=== PATIENT | female | born 1965 | race Caucasian/White ===

== ENCOUNTER → 2020-07-20 | Outpatient (CLI) | payer BC | END | disposition home or self-care (01) | LOC: RADMRIMAIN 14:05 | PROVIDERS: ATTEND Family Medicine | DX: Z53.9 Procedure and treatment not carried out, unspecified reason (principal) ==

== ENCOUNTER → 2020-09-18 | Outpatient (CLI) | payer BC ==
[2020-09-18 16:24] LABS: Basophils % (A) 1 %; Eosinophils # (A) 0.1 k/uL (0-0.7); Eosinophils % (A) 2 %; HCT 39.4 % (34.0-46.0); HGB 13.1 gm/dL (11.4-16.0); Lymphocytes # (A) 2.6 k/uL (1.0-4.8); Lymphocytes % (A) 36 %; MCH 31.1 pg (25.0-35.0); MCHC 33.2 g/dL (31.0-37.0); MCV 93.5 fL (80.0-100.0); Mean Platelet Volume 7.6; Monocytes # (A) 0.4 k/uL (0-1.0); Monocytes % (A) 5 %; Neutrophils # (A) 3.9 k/uL (1.3-7.7); Neutrophils % (A) 54 %; Platelet Count 218 k/uL (150-450); RBC 4.21 m/uL (3.80-5.40); RDW 13.1 % (11.5-15.5); WBC 7.2 k/uL (3.8-10.6)
[2020-09-18 16:46] LABS: Potassium 4.7 mmol/L (3.5-5.1)
== END | disposition home or self-care (01) ==
LOC: LABPAT 15:30
PROVIDERS: ATTEND Orthopaedic Surgery
DX: M75.42 Impingement syndrome of left shoulder (principal)
CPT/HCPCS: 36415; 80051; 85025; 93005

== ENCOUNTER 2020-09-23 09:52 | Day surgery (SDC) | payer BC ==
[2020-09-20 11:22] VITALS: BMI 29.6
--- NOTE | 2020-09-22 16:10 | HP ---
HISTORY AND PHYSICAL DATE OF SURGERY: 09/23/2020 Tammie Hummel is a 55-year-old patient seen with progressive left shoulder pain. We discussed options for treatment. She elected to proceed with arthroscopy. Consent regarding procedure was obtained. PAST MEDICAL HISTORY: Zev-ftpfgyy-sqxxmaktz diabetes, hyperlipidemia, hypertension, hypothyroidism. PAST SURGICAL HISTORY: section, cholecystectomy, mastectomy. DAILY MEDICATIONS ARE: Doxycycline, levothyroxine. ALLERGIES: CEFAZOLIN, SURGICAL TAPE, EVISTA. SOCIAL HISTORY: She denies tobacco use. PHYSICAL EVALUATION: The left shoulder shows flexion is 150, abduction is 140, external rotation is 30 with pain and weakness. She is tender along the anterior acromion. The anterolateral rotator cuff insertion site impingement is positive at 80/90 degrees. Drop-arm sign is positive. Her distal neurovascular exam is intact. RADIOGRAPHS: Radiographs of the left shoulder revealed a type 2 anterior acromion, moderate osteoarthritic change of the acromioclavicular joint and cystic changes of the greater tuberosity. IMPRESSION: 1. Left shoulder impingement with rotator cuff tear. 2. Left shoulder acromioclavicular joint osteoarthritis. 3. Hyperlipidemia. 4. Hypothyroidism. 5. Ayy-evlnwbv-vsfwgtryb diabetes. PLAN: Left shoulder arthroscopy with subacromial decompression, arthroscopic rotator cuff repair, Ca procedure and debridement. MMODL / IJN: [id number] /
[~2020-09-23 09:52] MED LIST: CLINDAMYCIN 600 MG in DEXTROSE 5% IN WATER 50 ML IVPB ONE; DEXAMETHASONE SOD PHOSPHATE 4 MG/ML 1 ML VIAL IV ONE; LACTATED RINGERS 1,000 ML IV SCH; LIDOCAINE 1% (10MG/ML) FOR IV START INTRADERMA PRN; MIDAZOLAM 2 MG/2 ML VIAL IV PRN; ONDANSETRON 4 MG/2 ML VIAL IVP ONE
[2020-09-23 10:37] LABS: Glucose,Whole Blood 136 mg/dL (75-99)
[2020-09-23] MEDS ORDERED: MIDAZOLAM 2 MG/2 ML VIAL IVP ONE (10:47)
[2020-09-23] MEDS ORDERED: SUCCINYLCHOLINE CHLORIDE 100 MG/5 ML SYR IV ONE (11:57)
[2020-09-23] MEDS ORDERED: ROPIVACAINE 5 MG/ML 30 ML VIAL ONE (11:57)
[2020-09-23] MEDS ORDERED: MIDAZOLAM 2 MG/2 ML VIAL ONE (11:57)
[2020-09-23] MEDS ORDERED: PHENYLEPHRINE-0.9% NACL SYG 1 MG/10 ML SYRINGE ONE (11:57)
[2020-09-23] MEDS ORDERED: LIDOCAINE 1% INJ 10MG/ML (20 ML MDV) ONE (11:57)
[2020-09-23] MEDS ORDERED: fentaNYL (PF) 50 MCG/ML 2 ML AMP ONE (11:57)
[2020-09-23] MEDS ORDERED: PROPOFOL 10 MG/ML 20 ML VIAL IV ONE (11:57)
--- NOTE | 2020-09-23 13:09 | P.ANPRN ---
Procedure Note - Anesthesia - Nerve Block Performed Left Interscalene Single Date of Procedure: 09/23/20 Procedure Start Time: 10:46 Procedure Stop Time: 11:02 Indication: Acute Post-Operative Pain, Requested by Surgeon Specifically requested for management of pain by DrRenetta: Tarun Murguia Sedation Type: Sedate with meaningful contact maintained Preparation: Sterile Prep Position: Supine Catheter: None Needle Types: On-Q Needle Gauge: 20 Ultrasound used to visualize needle placement: Yes Ultrasound used to observe medication spread: Yes Injectate: Other (see comment) (25 cc of Ropivacaine 0.5%) Blood Aspirated: No Pain Paresthesia on Injection Noted: No Resistance on Injection: Normal Image Stored and Saved: Yes Events: Uneventful and Well Tolerated
--- NOTE | 2020-09-23 13:36 | P.OP ---
Date of Procedure: 09/23/20 Preoperative Diagnosis: Left shoulder impingement Postoperative Diagnosis: 1. Left shoulder rotator cuff tear 2. Left shoulder impingement 3. Left shoulder partial long head biceps tendon tear 4. Left shoulder superficial labral tear Procedure(s) Performed: 1. Left shoulder arthroscopic rotator cuff repair 2. Left shoulder arthroscopic subacromial decompression 3. Left shoulder arthroscopic biceps tenotomy 4. Left shoulder arthroscopic debridement labral tear Implants: 14.75 Arthrex swivel lock anchor Anesthesia: GETA, regional (Interscalene block) Surgeon: Tarun Murguia Entry Level Accountant #1: Tadeo Torres Estimated Blood Loss (ml): 7 Pathology: none sent Condition: stable Disposition: PACU Indications for Procedure: 55-year-old patient seen with progressive left shoulder pain. After treatment options were discussed with her, she elected to proceed with arthroscopy. Operative Findings: See description of procedure Description of Procedure: Patient underwent an interscalene block by department of anesthesia. The patient was then taken to the operative suite. The patient underwent a general anesthetic by the department of anesthesia. The patient was placed into a lateral position and secured. There was appropriate padding of the bony prominence. Left shoulder was then prepped and draped in normal sterile orthopedic fashion. We placed the extremity in 10 pounds of longitudinal traction. A posterior incision was now made for a posterior working portal site. The trocar and cannula were inserted into the glenohumeral joint. Arthroscopy w as initiated. Spinal needle was now inserted anteriorly, to ascertain the anterior working portal site. An incision was now made in that area, a trocar was inserted followed by a probe. There was some hyperemia and partial tearing long head biceps tendon. There was some superficial tearing of the anterior labrum. There were grade 1 chondromalacia changes of the humeral head. I performed an arthroscopic biceps tenotomy. I debrided the superficial labral tears getting down to stable labral tissue. The residual labrum was probed and found to be stable. Instruments were now removed from glenohumeral joint. Utilizing the posterior working portal site, the trocar and cannula were inserted into the subacromial space. Arthroscopy initiated. I made an incision 2 fingerbreadths lateral to the acromion. I introduced my trocar followed by my ArthroCare ablator. I now began ablating thick subacromial bursal tissue, which exposed the undersurface of the anterior acromion. There was diminished subacromial space. There was a very prominent anterior acromion. A motorized bur was introduced and a subacromial decompression was performed. I also excised some osteophytes off the inferior aspect of the distal clavicle. The AC joint was visualized and noted to be moderately arthritic. I did not think a Ca procedure was warranted. I turned my attention to the rotator cuff tendon. I found area superficial tearing along the mid body distal supraspinatus. Upon probing that area there was an obvious full-thickness perforation/tear. I debrided the margins getting down to stable tendon tissue. The defect measured approximately 1.5 cm but was freely mobile over the footprint. I abraded the footprint with a motorized bur. I now with assistance of Thomas BARDALES past 3 everted mattress sutures through good bites of rotator cuff tendon. I now punched hole in the footprint area for insertion of an anchor. I now passed all 6 limbs of suture through the eyelet of a 4.75 Arthrex swivel lock anchor. I now introduced the eyelet into the pre-punched hole. I held it in position while Thomas BARDALES tensioned all 6 limbs of suture and deployed the anchor with good fixation noted. All residual suture limbs were now clipped. We had good compression of the tendon along the entire footprint. Injected 1 mL Renyte intra-articular. Instruments now removed from the portal sites. All portal sites were approximated with nylon suture. Sterile dressings were applied followed by a shoulder sling. Tadeo BARDALES assisted in this complex case. The patient was awakened, transferred to a bed, and taken to recovery in stable condition.
[2020-09-23 13:38] VITALS: TEMP 97
[2020-09-23 13:52] LABS: Glucose,Whole Blood 126 mg/dL (75-99)
[2020-09-23 14:02] VITALS: RESP 18
[2020-09-23 14:15] VITALS: BP 108/67; PULSE 91
== END 2020-09-23 15:13 | disposition home or self-care (01) ==
LOC: OR 09:52
PROVIDERS: ATTEND Orthopaedic Surgery
DX: M75.122 Complete rotator cuff tear or rupture of left shoulder, not specified as traumatic (principal); M75.42 Impingement syndrome of left shoulder; S46.112A Strain of muscle, fascia and tendon of long head of biceps, left arm, initial encounter; S43.432A Superior glenoid labrum lesion of left shoulder, initial encounter; I10 Essential (primary) hypertension; E78.5 Hyperlipidemia, unspecified; E11.9 Type 2 diabetes mellitus without complications; E03.9 Hypothyroidism, unspecified; Z88.1 Allergy status to other antibiotic agents; Z88.5 Allergy status to narcotic agent; Z88.8 Allergy status to other drugs, medicaments and biological substances; Z79.890 Hormone replacement therapy; Z79.84 Long term (current) use of oral hypoglycemic drugs; Z79.899 Other long term (current) drug therapy; Z90.49 Acquired absence of other specified parts of digestive tract; Z90.12 Acquired absence of left breast and nipple; Z91.048 Other nonmedicinal substance allergy status; Z98.891 History of uterine scar from previous surgery
CPT/HCPCS: 64415; 76942; 29824; 29826; 29827; J2250; J1100; J2405; J2001; J3010; J2795; J2370; J0330; J2704

== ENCOUNTER 2021-02-24 11:18 | Day surgery (SDC) | payer BC ==
--- NOTE | 2021-02-23 12:22 | HP ---
HISTORY AND PHYSICAL DATE OF SERVICE: Surgery scheduled for 02/24/2021 HISTORY OF PRESENT ILLNESS: Tammie Hummel is a 56-year-old patient seen with left shoulder adhesive capsulitis. We discussed options for treatment. She elected to proceed with manipulation under anesthesia left shoulder with steroid injection. Consent regarding the procedure was obtained. PAST MEDICAL HISTORY: Hypothyroidism, wxe-iiqzgkq-jyalwpagr diabetes, hyperlipidemia. PAST SURGICAL HISTORY: Shoulder arthroscopy, section, cholecystectomy, mastectomy. MEDICATIONS: Clonidine, levothyroxine, metformin, simvastatin. ALLERGIES: CEFAZOLIN, SURGICAL TAPE, EVISTA. SOCIAL HISTORY: She denies tobacco use. PHYSICAL EXAMINATION: Evaluation of the left shoulder, flexion 130, abduction 110 degrees, external rotation 30 degrees. Portal sites are well healed. Distal neurovascular exam intact. RADIOGRAPHS: Left shoulder radiographs revealed a stable conversion to a flat anterior acromion. IMPRESSION: 1. Left shoulder adhesive capsulitis. 2. History of left shoulder arthroscopic rotator cuff repair. 3. Hypertension. 4. Hyperlipidemia. 5. Hypothyroidism. 6. Yqs-iywwtmv-xvnapxudk diabetes. PLAN: Manipulation under anesthesia left shoulder with steroid injection. Surgery is scheduled for 02/24/2021. MMODL / IJN: [id number] /
[~2021-02-24 11:18] MED LIST changes: -CLINDAMYCIN 600 MG in DEXTROSE 5% IN WATER 50 ML IVPB ONE; -DEXAMETHASONE SOD PHOSPHATE 4 MG/ML 1 ML VIAL IV ONE; -ONDANSETRON 4 MG/2 ML VIAL IVP ONE; +Pre Op ABX Message 1 EACH MISC MISCELLANE ONE
[2021-02-24 12:06] LABS: Glucose,Whole Blood 254 mg/dL (75-99)
[2021-02-24] MEDS ORDERED: ONDANSETRON 4 MG/2 ML VIAL ONE (12:08)
[2021-02-24] MEDS ORDERED: INSULIN ASPART (NovoLOG) 100 UNIT/ML VIAL SQ ONE (12:14)
[2021-02-24] MEDS ORDERED: ONDANSETRON 4 MG/2 ML VIAL IVP ONE (12:14)
[2021-02-24] MEDS ORDERED: DEXAMETHASONE SOD PHOSPHATE 4 MG/ML 1 ML VIAL IVP ONE (12:14)
[2021-02-24] MEDS ORDERED: MIDAZOLAM 2 MG/2 ML VIAL ONE (12:29)
[2021-02-24] MEDS ORDERED: PROPOFOL 10 MG/ML 20 ML VIAL IV ONE (12:29)
[2021-02-24] MEDS ORDERED: fentaNYL (PF) 50 MCG/ML 2 ML AMP ONE (12:29)
--- NOTE | 2021-02-24 12:45 | P.OP ---
Date of Procedure: 02/24/21 Preoperative Diagnosis: Left shoulder adhesive capsulitis Postoperative Diagnosis: Left shoulder adhesive capsulitis Procedure(s) Performed: Manipulation under anesthesia left shoulder with steroid injection Anesthesia: MAC, local Surgeon: Tarun Murguia Estimated Blood Loss (ml): 0 Pathology: none sent Condition: stable Disposition: PACU Indications for Procedure: 56-year-old patient seen with persistent left shoulder adhesive capsulitis. After treatment options were discussed, she elected to proceed with manipulation under anesthesia with steroid injection. Operative Findings: See description of procedure Description of Procedure: The patient was taken to a monitored anesthesia area. The patient received IV sedation by the department of anesthesia. Once sufficient anesthesia was noted I performed a manipulation of the left shoulder achieving near full range of motion with audible tearing of the adhesions. the anterior aspect was now prepped and draped in the normal sterile orthopedic fashion. I injected a mixture of 1 mL Depo-Medrol and 3 mL quarter percent Marcaine intra-articular under sterile technique. I applied a sterile Band-Aid. The patient was awakened having tolerated procedure well.
[2021-02-24 12:53] VITALS: TEMP 98
[2021-02-24] MEDS ORDERED: KETOROLAC 15 MG/ML 1 ML VIAL IVP ONE (12:53)
[2021-02-24] MEDS ORDERED: fentaNYL (PF) 50 MCG/ML 2 ML AMP IVP ONE ×2 (12:58→13:07)
[2021-02-24 13:17] LABS: Glucose,Whole Blood 217 mg/dL (75-99)
[2021-02-24 13:22] VITALS: RESP 16
[2021-02-24] MEDS ORDERED: HYDROcodone/APAP 5-325MG 1 EACH TAB ONE (13:45)
[2021-02-24] MEDS ORDERED: HYDROcodone/APAP 5-325MG 1 EACH TAB PO ONE (13:45)
[2021-02-24 14:11] VITALS: BP 116/82; PULSE 89
== END 2021-02-24 14:40 | disposition home or self-care (01) ==
LOC: OR 11:18
PROVIDERS: ATTEND Orthopaedic Surgery
DX: M75.02 Adhesive capsulitis of left shoulder (principal); E03.9 Hypothyroidism, unspecified; E11.9 Type 2 diabetes mellitus without complications; E78.5 Hyperlipidemia, unspecified; Z90.49 Acquired absence of other specified parts of digestive tract; Z98.891 History of uterine scar from previous surgery; Z90.10 Acquired absence of unspecified breast and nipple; Z98.890 Other specified postprocedural states; Z79.84 Long term (current) use of oral hypoglycemic drugs; Z79.890 Hormone replacement therapy; Z79.899 Other long term (current) drug therapy; Z88.1 Allergy status to other antibiotic agents; Z88.8 Allergy status to other drugs, medicaments and biological substances; Z91.09 Other allergy status, other than to drugs and biological substances
CPT/HCPCS: 23700; J2250; J1100; J2405; J3010; J1885; J2704

== ENCOUNTER → 2021-04-02 | Outpatient (CLI) | payer BC ==
--- NOTE | 2021-04-02 19:28 | CONS ---
CONSULTATION DATE OF SERVICE: 04/02/2021. 56-year-old lady has been evaluated in [facility] for possible obstructive sleep apnea-hypopnea syndrome. HISTORY OF PRESENT ILLNESS/SLEEP WAKE EVALUATION: SLEEP SCHEDULE: Patient's usual sleep schedule from 10 to 11:50 p.m. until 7 a.m. FALLING ASLEEP: She does have problems with falling asleep. She has TV set in bedroom. DURING SLEEP: She usually sleeps on the stomach position. She snores and wakes up from sleep 2 times with nocturia. Has episodes of snorting, choking, positive history of nightmares. She grinds her teeth, has symptoms of dry mouth, sleep talking, sweating. DURING THE DAY/SLEEP WAKE EVALUATION: In the morning patient wakes up tired, has difficulties to pay attention, falling asleep during the day, has problems with memory, concentration, and depression. [place] Sleepiness Scale significantly increased to 11. PAST MEDICAL HISTORY: Positive for hypertension, hyperlipidemia, arthritis, sinus problems, headaches, acid reflex, diabetes mellitus, depression, hypothyroidism, left breast carcinoma. PAST SURGICAL HISTORY: Left breast mastectomy and radiation therapy for left breast CA, cholecystectomy, left breast reconstruction, bilateral cataract surgery, surgical treatment of basal cell carcinoma, rotator cuff surgery September 2020. MEDICATIONS: Synthroid 75 mcg once a day. Fluticasone nasal spray. Telmisartan, amlodipine 80-5 mg once a day. Metformin 1000 mg twice a day, night 1 mg twice a day, Venlafaxine 25 mg once a day, Clonidine 0.1 mg once a day. Topiramate 50 mg once a day. Simvastatin 40 mg twice a week. Vitamin D 50,000 units once a week. REVIEW OF SYSTEMS: Awakenings from sleep, sleepiness during the day, snoring. FAMILY HISTORY: Stroke, heart problems. PHYSICAL EXAMINATION: GENERAL: lady without distress. BP 125/87, HR 71, RR 15, height 5 feet 7 inches, weight 183.6, temperature 97.1. Oxygen saturation at room air 99%. Oropharynx: Low position of soft palate. Mallampati 3. NECK: 14 inches in circumference. Supple, no JVD. Thyroid is not palpable. LUNGS: Clear to percussion and to auscultation. Good air exchange. No wheezing or rhonchi. HEART: S1, S2 regular. No murmurs, gallops, or rubs. ABDOMEN: Slightly obese. Soft and nontender. Bowel sounds are present. No organomegaly appreciated. EXTREMITIES: No clubbing or cyanosis. CLEANING TEAM MEMBER: Awake, alert, and oriented X3. Cranial nerves 2 to 7 intact. There is no fasciculation or atrophy. noted. No focal deficits observed. IMPRESSION: 1. Snoring, awakenings from sleep with gasping for air and nocturia. Low position of soft palate, Mallampati 3, sleepiness. [place] Sleepiness Scale is 11, obstructive sleep apnea-hypopnea syndrome. 2. Obesity, BMI 32.4. 3. Hypertension. 4. Hyperlipidemia. 5. Headaches. 6. Acid reflux. 7. History of sinus problems. 8. History of left breast carcinoma, status post radiation therapy originally and then mastectomy. 9. Diabetes mellitus. 10.Depression. 11.Hypothyroidism. 12.Status post cholecystectomy. 13.Status post rotator cuff surgery on the left in September 2020. 14.Status post bilateral cataract surgery in 2019. 15.Status post treatment for basal cell carcinoma in 2016. 16.Status post . 17.Status post ganglionic cyst removed on the right side. PLAN: 1. Home sleep apnea test for evaluation of patient breathing during sleep. 2. CPAP/BiPAP titration if sleep study confirms obstructive sleep apnea-hypopnea syndrome. 3. Preferable position during sleep on the side. 4. No driving if patient feels any sleepiness. 5. I will see patient for follow up visit to explain results of testing and following plan. Thank you very much for referring this patient for consultation. Sincerely, John Vogel MD, PhD, FAASM Diplomat of [place] [employer] [place] [employer] [facility] [place] MMODL / IJN: [id number] /
== END | disposition home or self-care (01) ==
LOC: SLEEP 16:40
PROVIDERS: ATTEND Internal Medicine
DX: G47.33 Obstructive sleep apnea (adult) (pediatric) (principal); E66.9 Obesity, unspecified; Z68.32 Body mass index [BMI] 32.0-32.9, adult; I10 Essential (primary) hypertension; E78.5 Hyperlipidemia, unspecified; R51.9 Headache, unspecified; K21.9 Gastro-esophageal reflux disease without esophagitis; E11.9 Type 2 diabetes mellitus without complications; F32.9 Major depressive disorder, single episode, unspecified; E03.9 Hypothyroidism, unspecified; Z90.49 Acquired absence of other specified parts of digestive tract; Z98.890 Other specified postprocedural states; Z98.42 Cataract extraction status, left eye; Z98.41 Cataract extraction status, right eye
CPT/HCPCS: 99202

== ENCOUNTER 2021-10-09 11:53 | Emergency (ER) | payer BC ==
[2021-10-09] MEDS ORDERED: SODIUM CHLORIDE 0.9% 1,000 ML IV STA (12:46)
--- NOTE | 2021-10-09 12:48 | ED ---
General Adult HPI - General Chief complaint: Chest Pain Stated complaint: Chest pain Time Seen by Provider: 10/09/21 12:24 Source: patient Mode of arrival: ambulatory Limitations: no limitations - History of Present Illness Initial comments: 56-year-old female with a past medical history of diabetes mellitus, hyperlipidemia, hypertension who presents to the emergency room for right-sided chest pain. Patient states last night she noticed intermittent sharp pain in the right side of the chest. States it is stabbing in nature. States it comes and goes lasting about 30 seconds at a time. Patient denies any alleviating or aggravating factors. Denies it worsening with breathing or exertion that she is aware of. Denies any shortness of breath or diaphoresis.Patient has no other complaints at this time including shortness of breath, abdominal pain, nausea or vomiting, headache, or visual changes. - Related Data Home Medications Medication Instructions Recorded Confirmed Simvastatin [Zocor] 40 mg PO Q48H 01/14/15 10/09/21 Fluticasone Propionate [Flonase 2 spr EA NOSTRIL DAILY 09/20/20 10/09/21 Allergy Relief] Venlafaxine HCl [Effexor] 25 mg PO DAILY 09/20/20 10/09/21 cloNIDine HCL [Catapres] 0.1 mg PO HS 09/20/20 10/09/21 Levothyroxine Sodium [Synthroid] 75 mcg PO DAILY 09/23/20 10/09/21 Clindamycin Gel [Cleocin T 1% Gel] 1 applic TOPICAL DAILY 10/09/21 10/09/21 Collagen 1 tab PO DAILY 10/09/21 10/09/21 Dapagliflozin Propanediol [Farxiga] 10 mg PO DAILY 10/09/21 10/09/21 Doxycycline Hyclate 50 mg PO DAILY 10/09/21 10/09/21 Ergocalciferol [Vitamin D2 (1250 1,250 mcg PO FR 10/09/21 10/09/21 Mcg = 01059 Iu)] Fexofenadine/Pseudoephedrine 1 tab PO BID PRN 10/09/21 10/09/21 [Ana-D 12 Hour Tablet] Multivitamins, Thera [Multivitamin 1 tab PO DAILY 10/09/21 10/09/21 (formulary)] [place]-3 Acid Ethyl Esters [Lovaza] 2 gm PO BID 10/09/21 10/09/21 Semaglutide [Ozempic] 0.5 mg SQ TU 10/09/21 10/09/21 metFORMIN HCL [Glucophage XR] 750 mg PO BID 10/09/21 10/09/21 Allergies Allergy/AdvReac Type Severity Reaction Status Date / Time Cephalosporins Allergy Rash/Hives Verified 10/09/21 14:56 ergotamine Allergy Anaphylaxis Verified 10/09/21 14:56 GIOVANI Inhibitors AdvReac Cough Verified 10/09/21 14:56 hydromorphone HCl AdvReac Itching Verified 10/09/21 14:56 [From Dilaudid] raloxifene HCl [From Evista] AdvReac SEVERE LEG Verified 10/09/21 14:56 PAIN WYYGRAINE Allergy Anaphylaxis Uncoded 10/09/21 14:56 Review of Systems ROS Statement: Those systems with pertinent positive or pertinent negative responses have been documented in the HPI. ROS Other: All systems not noted in ROS Statement are negative. Past Medical History Past Medical History: Cancer, Diabetes Mellitus, Hyperlipidemia, Hypertension, Liver Disease, Osteoarthritis (OA), Skin Disorder, Thyroid Disorder Additional Past Medical History / Comment(s): YEAST INFECTION ON FACE FROM MASK, IS CLEARING UP. LT BREAST CA X2 2000, 2006, Fatty Liver. Adult Acne. History of Any Multi-Drug Resistant Organisms: None Reported Past Surgical History: Breast Surgery, Section, Cholecystectomy, Orthopedic Surgery Additional Past Surgical History / Comment(s): 09/23/20 LEFT SHOULDER ROTATOR CUFF REPAIR. BILATERAL MASTECTOMY..NUMEROUS BREAST SURGERIES/RECONSTRUCTIONS LT BREAST HAD RADIATION 2000, CHEMO 2005. SINUS SURGERY. GANLION CYST REMOVED RT WRIST. LYMPH NODE DISSECTION 2000. BILATERAL cataract removed. Past Anesthesia/Blood Transfusion Reactions: Motion Sickness, Postoperative N ausea & Vomiting (PONV) Past Psychological History: Depression Smoking Status: Never smoker Past Alcohol Use History: Rare Past Drug Use History: None Reported - Past Family History Mother Family Medical History: Cancer General Exam Limitations: no limitations General appearance: alert, in no apparent distress Head exam: Present: atraumatic Eye exam: Present: normal appearance, PERRL, EOMI. Absent: scleral icterus, conjunctival injection ENT exam: Present: normal exam, mucous membranes moist Neck exam: Present: normal inspection, full ROM. Absent: tenderness Respiratory exam: Present: normal lung sounds bilaterally. Absent: respiratory distress, wheezes Cardiovascular Exam: Present: regular rate, normal rhythm, normal heart sounds GI/Abdominal exam: Present: soft, normal bowel sounds. Absent: distended, tenderness Neurological exam: Present: alert Course Vital Signs 10/09/21 10/09/21 12 12:01 12:38 14:21 Temperature 98.1 F 97.9 F Pulse Rate 84 82 Pulse Rate [ 84 Emts ] Respiratory 10 L 18 Rate Blood Pressure 185/109 158/90 O2 Sat by Pulse 100 98 Oximetry EKG Findings - EKG Comments: EKG Findings:: Normal sinus rhythm, ventricular rate 75, NJ interval 184, QTC 439 Medical Decision Making - Medical Decision Making Vitals are stable. Patient is well-appearing. Patient's pain described as atypical. States it is sharp and stabbing in nature and comes and goes. Nonexertional. No diaphoresis. No shortness of breath or nausea. Laboratory evaluation unremarkable. Troponin is negative. D-dimer is within normal limits. Magnesium was replaced orally. Chest x-ray shows no acute process. Discussed inpatient admission versus three-hour troponin with patient. Patient states she would prefer to have a repeat troponin and to follow-up with her doctor. She has an appointment this coming week. - Lab Data Result diagrams: 10/09/21 12:56 10/09/21 12:56 Lab Results 10/09/21 12 12 Range/Units 12:56 12:56 12:56 WBC 5.0 (3.8-10.6) k/uL RBC 4.65 (3.80-5.40) m/uL Hgb 14.5 (11.4-16.0) gm/dL Hct 41.2 (34.0-46.0) % MCV 88.5 (80.0-100.0) fL MCH 31.1 (25.0-35.0) pg MCHC 35.2 (31.0-37.0) g/dL RDW 13.5 (11.5-15.5) % Plt Count 207 (150-450) k/uL MPV 8.2 Neutrophils % 57 % Lymphocytes % 33 % Monocytes % 6 % Eosinophils % 1 % Basophils % 1 % Neutrophils # 2.9 (1.3-7.7) k/uL Lymphocytes # 1.7 (1.0-4.8) k/uL Monocytes # 0.3 (0-1.0) k/uL Eosinophils # 0.1 (0-0.7) k/uL Basophils # 0.0 (0-0.2) k/uL PT 9.6 (9.0-12.0) sec INR 0.9 (<1.2) APTT 22.2 (22.0-30.0) sec D-Dimer 0.52 (<0.60) mg/L FEU Sodium 138 (137-145) mmol/L Potassium 4.2 (3.5-5.1) mmol/L Chloride 103 (98-107) mmol/L Carbon Dioxide 23 (22-30) mmol/L Anion Gap 12 mmol/L BUN 7 (7-17) mg/dL Creatinine 0.76 (0.52-1.04) mg/dL Est GFR (CKD-EPI)AfAm >90 (>60 ml/min/1.73 sqM) Est GFR (CKD-EPI)NonAf 88 (>60 ml/min/1.73 sqM) Glucose 96 (74-99) mg/dL Calcium 10.3 H (8.4-10.2) mg/dL Magnesium 1.3 L (1.6-2.3) mg/dL Total Bilirubin 1.1 (0.2-1.3) mg/dL AST 39 H (14-36) U/L ALT 43 H (4-34) U/L Alkaline Phosphatase 54 (38-126) U/L Troponin I (0.000-0.034) ng/mL NT-Pro-B Natriuret Pep pg/mL Total Protein 7.8 (6.3-8.2) g/dL Albumin 4.8 (3.5-5.0) g/dL Lipase 128 (23-300) U/L 10/09/21 10/09/21 10/09/21 Range/Units 12:56 12:59 16:00 WBC (3.8-10.6) k/uL RBC (3.80-5.40) m/uL Hgb (11.4-16.0) gm/dL Hct (34.0-46.0) % MCV (80.0-100.0) fL MCH (25.0-35.0) pg MCHC (31.0-37.0) g/dL RDW (11.5-15.5) % Plt Count (150-450) k/uL MPV Neutrophils % % Lymphocytes % % Monocytes % % Eosinophils % % Basophils % % Neutrophils # (1.3-7.7) k/uL Lymphocytes # (1.0-4.8) k/uL Monocytes # (0-1.0) k/uL Eosinophils # (0-0.7) k/uL Basophils # (0-0.2) k/uL PT (9.0-12.0) sec INR (<1.2) APTT (22.0-30.0) sec D-Dimer (<0.60) mg/L FEU Sodium (137-145) mmol/L Potassium (3.5-5.1) mmol/L Chloride (98-107) mmol/L Carbon Dioxide (22-30) mmol/L Anion Gap mmol/L BUN (7-17) mg/dL Creatinine (0.52-1.04) mg/dL Est GFR (CKD-EPI)AfAm (>60 ml/min/1.73 sqM) Est GFR (CKD-EPI)NonAf (>60 ml/min/1.73 sqM) Glucose (74-99) mg/dL Calcium (8.4-10.2) mg/dL Magnesium (1.6-2.3) mg/dL Total Bilirubin (0.2-1.3) mg/dL AST (14-36) U/L ALT (4-34) U/L Alkaline Phosphatase (38-126) U/L Troponin I <0.012 <0.012 (0.000-0.034) ng/mL NT-Pro-B Natriuret Pep 170 pg/mL Total Protein (6.3-8.2) g/dL Albumin (3.5-5.0) g/dL Lipase (23-300) U/L Disposition Clinical Impression: Atypical chest pain Disposition: HOME SELF-CARE Condition: Good Instructions (If sedation given, give patient instructions): Chest Pain (ED) Additional Instructions: Please follow up with your doctor in 1-2 days. Return to the ER for any worsening. Is patient prescribed a controlled substance at d/c from ED?: No Referrals: Rosmery Palomares, [Primary Care Provider] - 1-2 days Time of Disposition: 17:01
--- NOTE | 2021-10-09 13:19 | XR ---
EXAMINATION TYPE: XR chest 2V DATE OF EXAM: 10/09/2021 COMPARISON: 10/13/2010 HISTORY: Shortness of breath TECHNIQUE: Frontal and lateral views of the chest are obtained. FINDINGS: Scattered senescent parenchymal changes noted. Hyperinflation compatible with COPD. No evidence for infiltrate. No evidence for atelectasis. Heart size is stable. Mediastinal structures are stable and grossly unremarkable. No evidence for hilar prominence. Degenerative changes dorsal spine. IMPRESSION: 1. No evidence for acute pulmonary disease.
[2021-10-09 13:21] LABS: Basophils % (A) 1 %; Eosinophils # (A) 0.1 k/uL (0-0.7); Eosinophils % (A) 1 %; HCT 41.2 % (34.0-46.0); HGB 14.5 gm/dL (11.4-16.0); Lymphocytes # (A) 1.7 k/uL (1.0-4.8); Lymphocytes % (A) 33 %; MCH 31.1 pg (25.0-35.0); MCHC 35.2 g/dL (31.0-37.0); MCV 88.5 fL (80.0-100.0); Mean Platelet Volume 8.2; Monocytes # (A) 0.3 k/uL (0-1.0); Monocytes % (A) 6 %; Neutrophils # (A) 2.9 k/uL (1.3-7.7); Neutrophils % (A) 57 %; Platelet Count 207 k/uL (150-450); RBC 4.65 m/uL (3.80-5.40); RDW 13.5 % (11.5-15.5)
[2021-10-09 13:28] LABS: ALT 43 U/L (4-34); AST 39 U/L (14-36); African American GFR (CKD) >90 (>60 ml/min/1.73 sqM); Albumin 4.8 g/dL (3.5-5.0); Alkaline Phosphatase 54 U/L (38-126); Anion Gap 12 mmol/L; Blood Urea Nitrogen 7 mg/dL (7-17); Calcium 10.3 mg/dL (8.4-10.2); Carbon Dioxide 23 mmol/L (22-30); Chloride 103 mmol/L (98-107); Glucose 96 mg/dL (74-99); Lipase 128 U/L (23-300); Magnesium 1.3 mg/dL (1.6-2.3); Non-African American GFR(CKD) 88 (>60 ml/min/1.73 sqM); Potassium 4.2 mmol/L (3.5-5.1); Sodium 138 mmol/L (137-145); Total Bilirubin 1.1 mg/dL (0.2-1.3); Total Protein 7.8 g/dL (6.3-8.2)
[2021-10-09 13:39] LABS: INR 0.9 (<1.2); Partial Thromboplastin Time 22.2 sec (22.0-30.0); Prothrombin Time 9.6 sec (9.0-12.0)
[2021-10-09 14:26] VITALS: RESP 18
[2021-10-09] MEDS ORDERED: MAGNESIUM OXIDE 400 MG TAB PO STA (14:31)
[2021-10-09 17:39] VITALS: BP 143/74; PULSE 73; TEMP 98.2
== END 2021-10-09 17:39 | disposition home or self-care (01) ==
LOC: EC 11:53
DX: R07.89 Other chest pain (principal); E11.9 Type 2 diabetes mellitus without complications; E78.5 Hyperlipidemia, unspecified; I10 Essential (primary) hypertension; M19.90 Unspecified osteoarthritis, unspecified site; Z79.899 Other long term (current) drug therapy; Z79.84 Long term (current) use of oral hypoglycemic drugs
CPT/HCPCS: 36415; 71046; 80053; 83690; 83735; 83880; 84484; 85025; 85379; 85610; 85730; 96360; 96361; 99285

== ENCOUNTER → 2021-11-18 | Outpatient (CLI) | payer BC ==
[2021-11-18 14:36] LABS: ALT 35 U/L (8-44); AST 28 U/L (13-35); African American GFR (CKD) 76.3 (60.0-200.0); Albumin 4.7 g/dL (3.8-4.9); Albumin/Globulin Ratio 1.95 (1.60-3.17); Alkaline Phosphatase 77 U/L (41-126); BUN/Creat Ratio 9.79 Ratio (12.00-20.00); Blood Urea Nitrogen 9.4 mg/dL (9.0-27.0); Calcium 9.9 mg/dL (8.7-10.3); Carbon Dioxide 22.4 mmol/L (20.0-27.5); Chloride 99 mmol/L (96-109); Globulin 2.4 g/dL (1.6-3.3); Glucose 140 mg/dL (70-110); Non-African American GFR(CKD) 65.8 (60.0-200.0); Potassium 3.8 mmol/L (3.5-5.5); Sodium 138 mmol/L (135-145); Total Protein 7.2 g/dL (6.2-8.2)
[2021-11-18 14:37] LABS: LDL Cholesterol,Calculated 80.2 mg/dL (0.0-131.0)
[2021-11-18 17:02] LABS: Estimated Average Glucose 111
== END | disposition home or self-care (01) ==
LOC: LABWHC1 10:06
PROVIDERS: ATTEND Internal Medicine Endocrinology, Diabetes & Metabolism
DX: E11.65 Type 2 diabetes mellitus with hyperglycemia (principal)
CPT/HCPCS: 36415; 80053; 80061; 82043; 82570; 83036; 84443

== ENCOUNTER → 2022-01-08 | Outpatient (CLI) | payer BC ==
--- NOTE | 2022-01-08 17:33 | SFUN ---
SLEEP CENTER FOLLOW UP NOTE DATE OF SERVICE: 01/08/2022 This 57-year-old lady has been followed in Sleep Center for treatment of obstructive sleep apnea-hypopnea syndrome. The patient was diagnosed with obstructive sleep apnea several months ago. Level of abnormalities was mild. Apnea-hypopnea index was only for 5.2, but at that time the patient presented with symptoms of excessive daytime sleepiness and hypertension. The patient started to use CPAP equipment but used it very few nights, and then she lost weight of around 50 pounds, felt better, and stopped using her PAP machine. During the last year, she used it for a couple of nights. At that time average pressure was 7.4 cm of water and the reading of apnea-hypopnea index from the machine is 5.3. But that was before the patient lost weight. MEDICATIONS: 1. Ozempic. 2. Farxiga. 3. Synthroid. 4. Fluticasone. 5. . 6. Simvastatin. PHYSICAL EXAMINATION: GENERAL: Pleasant patient in no distress. VITAL SIGNS: BP 171/103, HR 88, RR 16, weight 135 pounds, temperature 97.7, oxygen saturation at room air 100%. HEENT: PERRLA, EOMI, evaluation of oropharynx showed tongue protrudes midline. Low position of soft palate; Mallampati III. NECK: Supple, no JVD. Thyroid is not palpable. LUNGS: Clear to percussion and to auscultation. Good air exchange. No wheezing or rhonchi. HEART: S1, S2 regular. No murmurs, gallops, or rubs. ABDOMEN: Soft and nontender. Bowel sounds are present. No organomegaly appreciated. EXTREMITIES: No clubbing or cyanosis. CENTER MEDICAL DIRECTOR: Awake, alert, and oriented X3. Cranial nerves 2 to 7 intact. There is no fasciculation or atrophy. noted. No focal deficits observed. IMPRESSION: 1. Mild obstructive sleep apnea-hypopnea syndrome by results of home sleep apnea test. Apnea-hypopnea index at that time was 5.2. Patient was started on treatment with CPAP because she had sleepiness and hypertension, but she lost weight and stopped using CPAP equipment. 2. Hypertension. 3. Hyperlipidemia. 4. Headaches. 5. Acid reflux. 6. History of sinus problems. 7. History of left breast carcinoma, status post radiation therapy and mastectomy. 8. History of depression. 9. Diabetes mellitus. 10.Hypothyroidism. 11.Status post cholecystectomy. 12.Status post rotator cuff surgery on the left. 13.Status post bilateral cataract surgery in 2019. 14.Status post treatment for basal cell carcinoma in 2017. 15.Status post . 16.Status post ganglion cyst removed from the right side. PLAN: 1. Repeat home sleep apnea test to evaluate patient's breathing during sleep after patient lost 50 pounds. Expectation is that the test will be normal. 2. Sleep hygiene with regular time in bed for at least 7-1/2 to 8 hours. 3. No driving if feeling sleepiness. Thank you very much for allowing me to participate in the management of your patient. Sincerely, John Vogel MD, PhD, FAASM Diplomat of [place] [employer] Sleep Medicine Board of [place] [employer] [facility] Gila MMODL / ZACHERYN: [id number] /
== END ==
LOC: SLEEP 14:13
PROVIDERS: ATTEND Internal Medicine
DX: G47.33 Obstructive sleep apnea (adult) (pediatric) (principal); I10 Essential (primary) hypertension; E78.5 Hyperlipidemia, unspecified; K21.9 Gastro-esophageal reflux disease without esophagitis; F32.A Depression, unspecified; E11.9 Type 2 diabetes mellitus without complications; E03.9 Hypothyroidism, unspecified; Z90.49 Acquired absence of other specified parts of digestive tract; Z98.890 Other specified postprocedural states; Z85.3 Personal history of malignant neoplasm of breast; Z90.12 Acquired absence of left breast and nipple; Z92.3 Personal history of irradiation; Z98.42 Cataract extraction status, left eye; Z98.41 Cataract extraction status, right eye; Z98.891 History of uterine scar from previous surgery; Z79.890 Hormone replacement therapy; Z79.899 Other long term (current) drug therapy; Z88.1 Allergy status to other antibiotic agents; Z88.5 Allergy status to narcotic agent

== ENCOUNTER → 2022-12-04 | Outpatient (CLI) | payer BC ==
[2022-12-04 16:12] LABS: Homocysteine 14.3 umol/L (4.00-14.00); Progesterone 0.1 ng/mL
[2022-12-04 16:17] LABS: Chol/HDL Ratio 2.78 Ratio; Estradiol 7.1 pg/mL; LDL Cholesterol,Calculated 79.6 mg/dL (0.0-131.0)
== END | disposition home or self-care (01) ==
LOC: LABWHC1 07:28
PROVIDERS: ATTEND Internal Medicine Endocrinology, Diabetes & Metabolism
DX: C50.919 Malignant neoplasm of unspecified site of unspecified female breast (principal); E11.65 Type 2 diabetes mellitus with hyperglycemia
CPT/HCPCS: 36415; 80061; 82043; 82306; 82533; 82570; 82607; 82626; 82670; 82672; 82746; 83036; 83090; 84144; 84443; 86001

== ENCOUNTER → 2023-09-23 | Outpatient (CLI) | payer BC ==
--- NOTE | 2023-09-23 13:13 | CT ---
EXAMINATION TYPE: CT sinus wo con DATE OF EXAM: 09/23/2023 COMPARISON: None HISTORY: chronic ethmoidal sinusitis, sinus headaches, fatigue CT DLP: 519.50 mGycm. Automated Exposure Control for Dose Reduction was Utilized. TECHNIQUE: CT scan of the sinuses is performed without contrast, axial images are obtained, coronal r eformatted images are also reviewed. FINDINGS: The paranasal sinuses demonstrate postsurgical change with the ostium of the maxillary sin us widely patent. There is mild mucosal thickening and small mucous retention cyst or polyps in the bilateral maxillary sinus. Mild mucosal thickening in the ethmoid air cells. No significant changes within the frontal s inus or sphenoid sinus. There are no air-fluid levels. Slight nasal septal deviation.. Visualized portion of mastoid air cells show no abnormal opacification. The globes are intact bilate rally. Partially empty sella turcica noted. IMPRESSION: IMPRESSION: 1. Postsurgical changes with the ostium in the maxillary sinus widely patent. 2. Mild changes of chronic ethmoidal and maxillary sinusitis. No diagnostic evidence of acute sinusit is.
== END | disposition home or self-care (01) ==
LOC: RADCTMAIN 11:03
PROVIDERS: ATTEND Family Medicine
DX: J32.2 Chronic ethmoidal sinusitis (principal); J32.0 Chronic maxillary sinusitis; R53.83 Other fatigue; Z98.890 Other specified postprocedural states
CPT/HCPCS: 70486

== ENCOUNTER → 2025-05-10 | Outpatient (CLI) | payer BC ==
[2025-05-10 19:49] LABS: HCT 35.9 % (37.2-46.3); HGB 11.9 g/dL (12.0-15.0); MCH 30.6 pg (27.0-32.0); MCHC 33.1 g/dL (32.0-37.0); MCV 92.3 FL (80.0-97.0); NRBC Per 100 WBC 0 X 10*3/uL (0.00-0.01); Platelet Count 221 X 10*3/uL (140-440); RBC 3.89 X 10*6/uL (4.10-5.20); RDW 12.7 % (11.5-14.5); WBC 6.46 X 10*3/uL (4.50-10.00)
[2025-05-10 20:54] LABS: Albumin 4.8 g/dL (3.8-4.9); Anion Gap 13.80 mmol/L (4.00-12.00); BUN/Creat Ratio 10.94 Ratio (12.00-20.00); Blood Urea Nitrogen 19.7 mg/dL (9.0-27.0); Calcium 9.6 mg/dL (8.7-10.3); Carbon Dioxide 21.2 mmol/L (21.6-31.8); Chloride 99 mmol/L (96-109); Glucose 108 mg/dL (70-110); Magnesium 1.6 mg/dL (1.5-2.4); Potassium 4.6 mmol/L (3.5-5.5); Sodium 134 mmol/L (135-145)
[2025-05-10 21:21] LABS: Bilirubin,Urine Negative (Negative); Blood,Urine Negative (Negative); Color,Urine Dark Yellow (Yellow); Ketones,Urine Negative (Negative); Nitrite,Urine Negative (Negative); PH, Urine 5.5; Specific Gravity,Urine 1.008 (1.001-1.030); Urobilinogen,Urine 0.2 E.U./DL
[2025-05-10 21:24] LABS: Bacteria,Urine None Seen (None Seen)
== END | disposition home or self-care (01) ==
LOC: LABWHC1 15:17
PROVIDERS: ATTEND Internal Medicine Nephrology
DX: N18.30 Chronic kidney disease, stage 3 unspecified (principal)
CPT/HCPCS: 36415; 80069; 81001; 82306; 83735; 83970; 85027

== ENCOUNTER → 2025-05-28 | Outpatient (CLI) | payer BC ==
--- NOTE | 2025-05-30 09:55 | CT ---
EXAMINATION TYPE: CT abdomen pelvis wo con DATE OF EXAM: 05/28/2025 11:36 AM COMPARISON: None. CLINICAL INDICATION: Female, 60 years old with history of N13.30 UNSPECIFIED HYDRONEPHROSIS, rt hydro TECHNIQUE: Axial images were obtained from above the diaphragm to the pubic rami in the axial plane a t 5 mm thick sections. Reconstructed images are reviewed on the computer in the coronal plane. CONTRAST: mL of . Study performed without Oral Contrast DLP: 276.2 mGycm, Automated exposure control for dose reduction was used. FINDINGS: Limited CT sections are obtained the lung bases. The lung bases are clear. CT ABDOMEN: Liver: Normal Spleen: Normal Pancreas: Atrophic Adrenal glands: The adrenal glands are normal. Gallbladder: Surgically absent Kidneys: No masses are evident. No hydronephrosis is present. There is a right extrarenal pelvis. No renal calyceal or fibular dilatation is evident. No hydroureter is evident. No cysts are present. Delayed images were obtained through the kidneys, which remain unremarkable. Aorta: Normal Inferior vena cava: Normal. CT PELVIS: Loops of bowel within the abdomen and pelvis are normal. There are loops of bowel which are incom pletely distended or lack oral contrast limiting their evaluation. Appendix: Normal as visualized. Urinary bladder: Normal. Genitourinary structures: Uterus is normal. Adnexa are unremarkable Osseous structures: No suspicious lytic or sclerotic lesions. IMPRESSION: 1. No right hydronephrosis. There is an extrarenal pelvis on the right, a normal variant. 2. No suspicious changes [facility], Workstation: [facility], [place], 05/30/2025 9:53 AM
== END | disposition home or self-care (01) ==
LOC: RADCTMAIN 11:16
PROVIDERS: ATTEND Urology
DX: N13.30 Unspecified hydronephrosis (principal)
CPT/HCPCS: 74176